=== PATIENT | male | born 1955 | race Caucasian/White ===

== ENCOUNTER 2017-08-09 21:40 | Emergency (ER) | payer BC, OTHER ==
[2017-08-09 21:54] VITALS: RESP 20; TEMP 96.9; O2SAT 98
[2017-08-09 23:25] VITALS: BP 146/89; PULSE 79
== END 2017-08-09 23:02 | disposition home or self-care (01) ==
LOC: ED 21:40
DX: H54.61 Unqualified visual loss, right eye, normal vision left eye (principal)
CPT/HCPCS: 99282

== ENCOUNTER 2018-03-02 09:26 | Day surgery (SDC) | payer MEDICARE, BC ==
[~2018-03-02 09:26] MED LIST: LIDOCAINE HCL 1% MPF 30 SOL ONE; PROPOFOL 500 MG/50 ML EMU IV ONE
[2018-03-02 11:47] VITALS: BP 159/91; PULSE 88; RESP 20; TEMP 97.4; O2SAT 92
== END 2018-03-02 12:11 | disposition home or self-care (01) | DRG 951 ==
LOC: SURG 09:26
PROVIDERS: ATTEND Surgery
DX: Z12.11 Encounter for screening for malignant neoplasm of colon (principal); Z86.010 Personal history of colon polyps; K63.5 Polyp of colon; D12.2 Benign neoplasm of ascending colon
CPT/HCPCS: J2001; J2704